=== PATIENT | male | born 1960 | race Caucasian/White ===

== ENCOUNTER 2024-01-07 06:42 | Day surgery (SDC) | payer OTHER ==
[~2024-01-07] VITALS: Ht 177.8 cm; Wt 108.9 kg
[2024-01-07] MEDS ORDERED: MIDAZOLAM 2 MG/2 ML VIAL ONE ×2 (08:45→09:14)
[2024-01-07] MEDS ORDERED: diphenhydrAMINE 50 MG/ML VIAL ONE (08:45)
[2024-01-07] MEDS ORDERED: fentaNYL citrate 0.05 MG/ML VIAL ONE ×3 (08:45→09:38)
[2024-01-07] MEDS ORDERED: LIDOCAINE 2% 100 MG/5 ML UJET TP ONE (08:46)
[2024-01-07] MEDS ORDERED: MIDAZOLAM 5 MG/5 ML VIAL ONE (09:38)
[2024-01-07] MEDS: MIDAZOLAM 2 MG/2 ML VIAL IVP ONE (09:42)
[2024-01-07] MEDS: fentaNYL citrate 0.05 MG/ML VIAL IVP ONE (09:43)
== END 2024-01-07 10:45 | disposition home or self-care (01) ==
LOC: MDS 06:42 → MMU 06:50 → MDS 10:45
PROVIDERS: ATTEND Surgery
DX: Z12.11 Encounter for screening for malignant neoplasm of colon (principal); K62.1 Rectal polyp; Z86.010 Personal history of colon polyps; Z98.0 Intestinal bypass and anastomosis status
CPT/HCPCS: 45380; J2250; J3010; J1200